=== PATIENT | male | born 1955 | race Caucasian/White ===

== ENCOUNTER 2017-04-13 06:02 | Inpatient (IN) | payer BC ==
[~2017-04-13] VITALS: Ht 175.3 cm; Wt 113.1 kg
[~2017-04-13 06:02] MED LIST: ALPR0.5T3 PO; AMBI10TA PO; APIX5TAB PO; CALC250T PO; ENAL20TA81 PO; FERR325T18 PO; LEVO50TA4 PO; MULT-65 PO; OMEP20TA93 PO; PANT40TA3 PO; SIMV40TA PO; TOPR50TA PO; TRAM50TA PO
[2017-04-13] MEDS ORDERED: ceFAZolin 1,000 MG/NS 100 ML IV SCH ×2 (06:30)
[2017-04-13] MEDS ORDERED: ACETAMINOPHEN 1000 MG/100 ML 100 ML IV SCH (06:30)
[2017-04-13] MEDS ORDERED: POVIDONE IODINE 5% (ANTISEPSIS KIT) 4 APPLICATIONS EACH NARE PRN (06:30)
[2017-04-13] MEDS ORDERED: metroNIDAZOLE 500 MG INJ 100 ML IV SCH (06:30)
[2017-04-13] MEDS ORDERED: METOPROLOL TARTRATE 25 MG TAB PO PRN (06:30)
[2017-04-13] MEDS ORDERED: CHLORHEXIDINE GLUCONATE 2 % 1 PACK (2 CLOTHS) TOPICAL PRN (06:30)
[2017-04-13] MEDS ORDERED: LACTATED RINGER'S 1000 ML IV PRN (06:30)
[2017-04-13] MEDS ORDERED: SODIUM CHLORID 0.9% 500 ML IV PRN (06:30)
[2017-04-13] MEDS ORDERED: ALVIMOPAN 12 MG CAPSULE ONE (06:40)
[2017-04-13] MEDS ORDERED: BUPIVACAINE/EPINEPHRINE 0.25% PF 30 ML VIAL ONE (07:04)
[2017-04-13] MEDS ORDERED: ACETAMINOPHEN 1000 MG/100 ML 0 ML IV ONE (07:08)
[2017-04-13] MEDS ORDERED: HYDROmorphone HCL PF 2 MG/ML VIAL ONE (07:09)
[2017-04-13] MEDS ORDERED: SUGAMMADEX SODIUM 200 MG/2 ML VIAL IV PUSH ONE (07:09)
[2017-04-13 09:12] LABS: BICARBONATE 24.9 MEQ/L (21.0-32.0); CALCIUM 8.7 MG/DL (8.5-10.1); CREATININE 0.98 MG/DL (0.60-1.30)
[2017-04-13 09:34] LABS: AUTOMATED NEUTROPHIL # 3.5 TH/MM3 (1.8-7.7); BASOPHIL % 0.5 % (0.0-2.0); EOSINOPHIL # 0.2 TH/MM3 (0-0.4); EOSINOPHIL % 3.9 % (0.0-4.0); HEMATOCRIT 34.7 % (39.0-51.0); HEMOGLOBIN 11.1 GM/DL (13.0-17.0); LYMPH % 31.5 % (9.0-44.0); LYMPHOCYTE # 1.9 TH/MM3 (1.0-4.8); MEAN CELL VOLUME 80.2 FL (80.0-100.0); MEAN CORPUSCULAR HEMOGLOBIN 25.6 PG (27.0-34.0); MEAN CORPUSCULAR HGB CONC 31.9 % (32.0-36.0); MONO % 6.5 % (0.0-8.0); MONOCYTE # 0.4 TH/MM3 (0-0.9); NEUT % 57.6 % (16.0-70.0); PLATELET COUNT 289 TH/MM3 (150-450); RED BLOOD COUNT 4.33 MIL/MM3 (4.50-5.90); RED CELL DISTRIBUTION WIDTH 27.7 % (11.6-17.2); WHITE BLOOD COUNT 6.1 TH/MM3 (4.0-11.0)
[2017-04-13 10:09] LABS: OVALOCYTES 1+ (NORMAL)
--- NOTE | 2017-04-13 11:27 | HHI.PR ---
cc: Bakari Vann MD; West Cantu MD Immediate Post Op Note Procedure Date: Apr 13, 2017 Pre Op Diagnosis: Suspicious lesion hepatic flexure of colon Post Op Diagnosis: Same, located distal to hepatic flexure of colon Surgeon: West Cantu [employer] P[employer] Machine Operator(s): Thomas Vann MD Procedure: Laparoscopic assisted Right hemicolectomy Partial omentectomy Findings: One enlarged node noted in mesentery at hepatic flexure Complications: None Specimen(s) removed: Right colon to pathology; two specimens with tumor in specimen #2 Estimated blood loss: 250 ml Anesthesia: General Drains: None IVF (1900 ml) Patient to: PACU Patient Condition: Good Date/Time of Procedure: SEE SURGICAL CARE RECORD West Cantu MD Apr 13, 2017 11:27
[2017-04-13] MEDS ORDERED: MIDAZOLAM HCL 2 MG/2 ML VIAL ONE (11:47)
[2017-04-13] MEDS ORDERED: *morphine SULFATE 8 MG/ML PERIprocedure ONLY ONE (11:48)
[2017-04-13] MEDS ORDERED: NEOSTIGMINE 5 MG/5 ML SYRINGE IV PUSH ONE (12:00)
[2017-04-13] MEDS ORDERED: PROPOFOL 200 MG/20 ML AMP IV ONE (12:00)
[2017-04-13] MEDS ORDERED: DEXAMETHASONE SOD PHOS 4 MG/ML VIAL IV ONE (12:00)
[2017-04-13] MEDS ORDERED: KETOROLAC TROMETHAMINE 30 MG/ML (IVP) VIAL IV PUSH ONE (12:00)
[2017-04-13] MEDS ORDERED: SODIUM CHLORIDE 0.9% 20 ML VIAL IV ONE (12:00)
[2017-04-13] MEDS ORDERED: ROCURONIUM INJ 50 MG/5 ML SYRINGE IV PUSH ONE (12:00)
[2017-04-13] MEDS ORDERED: DO NOT ADM ANY ANTICOAGULANT DRUGS PRN (12:00)
[2017-04-13] MEDS ORDERED: ePHEDrine/NS 25 MG/5 ML SYRINGE IV ONE (12:00)
[2017-04-13] MEDS ORDERED: LACTATED RINGER'S 1000 ML INJ 2,000 ML IV ONE (12:00)
[2017-04-13] MEDS ORDERED: GLYCOPYRROLATE 1 MG/5 ML SYRINGE IV PUSH ONE (12:00)
[2017-04-13] MEDS ORDERED: PHENYLEPH/NS 1000 MCG/10 ML SYR IV ONE (12:00)
[2017-04-13] MEDS ORDERED: LIDOCAINE HCL 1% PF 5 ML SYRINGE OTHER ONE (12:00)
[2017-04-13] MEDS ORDERED: ONDANSETRON HCL 4 MG/2 ML VIAL IV ONE (12:00)
[2017-04-13] MEDS ORDERED: ACETAMINOPHEN/HYDROcodone 325 MG/5 MG TAB PO PRN (12:15)
--- NOTE | 2017-04-13 12:15 | MP ---
cc: WEST CANTU M.D., BEATRICE S. M.D. DATE OF SURGERY 04/13/2017 PROCEDURE Laparoscopic lysis of adhesions Right hemicolectomy Partial omentectomy. PREOPERATIVE DIAGNOSIS Suspicious lesion hepatic flexure of colon. POSTOPERATIVE DIAGNOSIS Suspicious lesion hepatic flexure of colon. ANESTHESIA General endotracheal. SURGEON West Cantu MD. [employer] SURGEON Bakari Vann MD. ESTIMATED BLOOD LOSS 250 mL. FLUIDS 1900 mL crystalloid. COMPLICATIONS None. DRAINS None. SPECIMEN Right colon and partial omentum to pathology. PROCEDURE IN DETAIL The patient was taken to the operating room and placed on the operating table in the supine position. After an adequate level of general endotracheal anesthesia was achieved, the abdomen was shaved and prepped and a Caballero catheter placed. The abdomen was draped. A timeout was taken confirming the correct patient, site and procedure to be performed. The skin was infiltrated with local anesthetic and a supraumbilical incision was made. The first trocar entered the abdominal cavity under direct vision uneventfully. A second trocar was placed in the right mid abdomen just past the midline to allow for easier mobilization of the colon. A Harmonic scalpel was then inserted and abdominal adhesions consisting entirely of omentum were taken down off of the anterior abdominal wall in a bloodless fashion. When the lower abdominal adhesions had been taken down, a third infraumbilical trocar was placed. This allowed for manipulation of the ascending colon. This was dissected free from the lateral body wall and retracted medially. The ileum was also dissected free from the sidewall with the Harmonic scalpel used to lyse adhesions. Dissection was then carried up along the ascending colon to the hepatic flexure which was taken down off of the liver with the Harmonic scalpel. The transverse colon was identified and the omentum divided along the colon to free it up further. When the entire hepatic flexure had been taken down, the laparoscopic procedure was terminated after choosing a position for the external resection. The colon was grasped with a grasping forceps which was then locked. The patient had placement of a right mid abdominal transverse incision. When this was accomplished electrocautery was used to divide the anterior and posterior fascia as well as a portion of the rectus muscle. The lateral rectus was left intact as was the epigastric vessel. When this was accomplished the peritoneal cavity was entered uneventfully. A wound protector was then placed. The colon and distal ileum was brought out into the wound. There were two lesions, one potentially felt in the distal ascending colon near the hepatic flexure, and a very hard lesion just distal to the hepatic flexure in the proximal transverse colon. The ileum was taken first with a stapling device and then the colon at the proximal transverse location. This was removed with clamping and ligation with 2-0 silk sutures. The specimen was palpated and passed off the table. Careful palpation revealed a definitive tumor distal to this and the colon was taken to the mid transverse colon. A node along the hepatic flexure was also noted and this was taken as well. Care was taken to include a substantial portion of mesentery with the specimen as well. When this had been accomplished, this portion of the colon was removed with successive clamping and ligation with 2-0 silk suture. The specimen was passed off the table with the lymph node as well as omentum that was involved with this portion of the colon. There did not appear to be any gross metastatic disease in the abdomen and the liver appeared to be without any lesions by laparoscopy. There did not appear to be any peritoneal implants. At this point the ileum and transverse colon were brought [id number]. A [id number] anastomosis was used with an ileocolostomy created and utilizing the 75 mm stapling device. When this had been accomplished the staple lines were examined and seen to be hemostatic. The ileocolostomy was closed with a TX60 type stapler. The toe of the staple line was reinforced with a silk suture. The mesentery was closed with [id number] 3-0 silk sutures. When this had been completed, the anastomosis was allowed to fall back into the abdominal cavity and the remaining omentum was brought back over the anastomosis. With hemostasis assured the wound was closed in two layers with running #1 PDS suture. The skin was closed with alexandra as were the other three trocar sites. Primapore dressing was applied over the transverse incision and Band-Aids applied over the trocar sites. The patient was taken back to the recovery room extubated and in stable condition. Sponge, needle and instrument counts were reported to be correct. MD CHELY Fierro/BEN /11:21 AM /11:40 AM VERONIKA
[2017-04-13] MEDS: MORPHINE SULFATE 30 MG/30 ML PCA IV SCH (12:21)
[2017-04-13] MEDS: D5-NS + KCL 20 MEQ INJ 1,000 ML IV SCH ×2 (12:21→20:58)
[2017-04-13] MEDS ORDERED: ONDANSETRON HCL 4 MG/2 ML VIAL IV PUSH PRN (12:30)
[2017-04-13] MEDS ORDERED: NALOXONE HCL 0.4 MG/ML AMP IV PUSH PRN (12:30)
[2017-04-13] MEDS ORDERED: Post-op Orders (for Pharmacy) XX ONE (13:00)
[2017-04-13] MEDS: PCA - TOTAL MG MORPHINE DELIVERED PER SHIFT SCH ×2 (14:00→22:00)
[2017-04-13 16:00] VITALS: BP 162/72; PULSE 62; RESP 18; TEMP 97.2; O2SAT 95
[2017-04-13] MEDS: ceFAZolin 2 GM PREMIX 50 ML IV SCH (16:02)
[2017-04-13] MEDS: ACETAMINOPHEN/HYDROcodone 325 MG/5 MG TAB PO PRN ×2 (16:02→20:57)
--- NOTE | 2017-04-13 17:09 | EKG ---
Date Performed: 04/13/2017 Time Performed: 06:48:10 PTAGE: 61 years EKG: SINUS BRADYCARDIA When compared to previous tracing, previously noted atrial Fibrillation i s no longer present. BORDERLINE ECG PREVIOUS TRACING : 08/23/2012 09.25 DOCTOR: Cookie Zeng Interpretating Date/Time 04/13/2017 17:07:51
[2017-04-13] MEDS: metroNIDAZOLE 500 MG INJ 100 ML IV SCH (17:32)
[2017-04-13] MEDS ORDERED: ARTIFICIAL TEARS OPTH SOLN 15 ML BTL EACH EYE PRN (19:45)
[2017-04-13 20:00] VITALS: BP 144/69; PULSE 79; RESP 18; TEMP 97.8; O2SAT 95
[2017-04-13] MEDS: ZOLPIDEM TARTRATE 10 MG TAB PO PRN (22:45)
[2017-04-13] MEDS: ALPRAZolam 0.5 MG TAB PO PRN (22:45)
[2017-04-14] VITALS (9 sets, daily range): BP systolic 115–139; BP diastolic 56–65; PULSE 62–89; RESP 17–20; TEMP 95.9–99; O2SAT 92–96
[2017-04-14] MEDS: ceFAZolin 2 GM PREMIX 50 ML IV SCH ×2 (00:52→09:32)
[2017-04-14] MEDS: ACETAMINOPHEN/HYDROcodone 325 MG/5 MG TAB PO PRN ×5 (00:53→21:21)
[2017-04-14] MEDS: metroNIDAZOLE 500 MG INJ 100 ML IV SCH ×2 (00:53→08:36)
[2017-04-14] MEDS: MORPHINE SULFATE 30 MG/30 ML PCA IV SCH ×2 (01:06→13:46)
[2017-04-14] MEDS: D5-NS + KCL 20 MEQ INJ 1,000 ML IV SCH (04:54)
[2017-04-14] MEDS: PCA - TOTAL MG MORPHINE DELIVERED PER SHIFT SCH ×3 (05:45→21:25)
[2017-04-14 07:38] LABS: BICARBONATE 24.6 MEQ/L (21.0-32.0); CALCIUM 8.2 MG/DL (8.5-10.1); CREATININE 1.04 MG/DL (0.60-1.30)
[2017-04-14] MEDS: MULTIVITAMIN TAB PO SCH (09:43)
[2017-04-14] MEDS: PANTOPRAZOLE SOD 40 MG DELAYED RELEASE TAB PO SCH (09:43)
[2017-04-14] MEDS: LEVOTHYROXINE SODIUM 50 MCG TAB PO SCH (09:43)
[2017-04-14] MEDS: ENALAPRIL MALEATE 10 MG TAB PO SCH (09:44)
[2017-04-14] MEDS ORDERED: CALCIUM CITRATE 500 MG PO SCH (09:45)
[2017-04-14] MEDS: METOPROLOL SUCCINATE 50 MG EXTENDED RELEASE TAB PO SCH ×2 (09:48→21:20)
[2017-04-14] MEDS: SODIUM CHLOR 0.9% 1000 ML INJ 1,000 ML IV SCH (11:39)
--- NOTE | 2017-04-14 13:00 | HHI.PR ---
Subjective Subjective Notes Resting in bed Had uneventful night last night Daughter at bedside Objective Vitals/I&O Vital Signs Date Time Temp Pulse Resp B/P (MAP) Pulse Ox O2 Delivery O2 Flow Rate FiO2 04/14/17 12:00 98.0 62 17 119/57 (77) 95 04/13/17 15:00 Room Air 04/13/17 11:45 2 Labs Laboratory Tests Test 04/14/17 05:21 Hemoglobin 10.6 Blood Urea Nitrogen 11 Creatinine 1.04 Random Glucose 219 Calcium Level 8.2 Sodium Level 136 Potassium Level 3.7 Chloride Level 103 Carbon Dioxide Level 24.6 Anion Gap 8 Estimat Glomerular Filtration Rate 73 Cardiovascular: Regular Lungs: Clear Abdomen: Other (incision with dressing--c/d/i; non distended; mild tenderness to palpation ) Extremities: No edema Narrative Exam Caballero in place with clear yellow urine A/P Assessment and Plan 61 year old male POD1 RIGHT hemicolectomy -Advance to full liquids -Adjust fluids -DC Caballero -OOB and mobilize -Await pathology -Heparin subq -Restart home medications; holding Eliquis for now -IS Attending Note - Dr. Cantu Moderate pain; dressing dry and intact. Tolerating diet at present Will place on telemetry due to history of A-fib Will obtain consult with Med Onc Wednesday AM when path available Advance diet to regular when patient has BM The exam, history, and the medical decision-making described in the above note were completed with the assistance of the mid-level provider. I reviewed and agree with the findings presented. I attest that I had a [id number] encounter with the patient on the same day, and personally performed and documented my assessment and findings in the medical record. Brunilda Garcia Apr 14, 2017 13:00 West Cantu MD Apr 14, 2017 16:53
[2017-04-14] MEDS: HEPARIN SODIUM - SQ 10,000 UNITS/ML VIAL SQ SCH (17:40)
[2017-04-14] MEDS: PRAVASTATIN SOD 80 MG TAB PO SCH (21:20)
[2017-04-14] MEDS: ALVIMOPAN 12 MG CAPSULE PO SCH (21:20)
[2017-04-14] MEDS: ZOLPIDEM TARTRATE 10 MG TAB PO PRN (22:31)
[2017-04-14] MEDS: ALPRAZolam 0.5 MG TAB PO PRN (22:31)
[2017-04-15 00:14] VITALS: BP 135/58; PULSE 69; RESP 20; TEMP 99; O2SAT 97
[2017-04-15] MEDS: ACETAMINOPHEN/HYDROcodone 325 MG/5 MG TAB PO PRN ×6 (02:09→22:53)
[2017-04-15] MEDS: HEPARIN SODIUM - SQ 10,000 UNITS/ML VIAL SQ SCH ×3 (02:10→19:00)
[2017-04-15] MEDS: MORPHINE SULFATE 30 MG/30 ML PCA IV SCH ×2 (02:14→20:57)
[2017-04-15 04:35] VITALS: BP 145/71; PULSE 75; RESP 20; TEMP 100.5; O2SAT 97
[2017-04-15] MEDS: LEVOTHYROXINE SODIUM 50 MCG TAB PO SCH (05:59)
[2017-04-15] MEDS: PCA - TOTAL MG MORPHINE DELIVERED PER SHIFT SCH ×3 (06:00→21:03)
[2017-04-15 08:00] VITALS: BP 137/79; PULSE 75; RESP 18; TEMP 97.4; O2SAT 94
[2017-04-15 08:21] LABS: BICARBONATE 28.4 MEQ/L (21.0-32.0); CALCIUM 8.5 MG/DL (8.5-10.1); CREATININE 0.75 MG/DL (0.60-1.30)
[2017-04-15] MEDS: METOPROLOL SUCCINATE 50 MG EXTENDED RELEASE TAB PO SCH ×2 (09:47→20:59)
[2017-04-15] MEDS: PANTOPRAZOLE SOD 40 MG DELAYED RELEASE TAB PO SCH (09:47)
[2017-04-15] MEDS: ENALAPRIL MALEATE 10 MG TAB PO SCH (09:47)
[2017-04-15] MEDS: ALVIMOPAN 12 MG CAPSULE PO SCH ×2 (09:47→20:59)
[2017-04-15] MEDS: MULTIVITAMIN TAB PO SCH (09:47)
[2017-04-15] MEDS: SODIUM CHLOR 0.9% 1000 ML INJ 1,000 ML IV SCH (10:19)
[2017-04-15 12:00] VITALS: BP 141/69; PULSE 74; RESP 18; TEMP 98.9; O2SAT 93
--- NOTE | 2017-04-15 13:10 | HHI.PR ---
Subjective Subjective Notes Resting in bed No issues overnight at bedside Objective Vitals/I&O Vital Signs Date Time Temp Pulse Resp B/P (MAP) Pulse Ox O2 Delivery O2 Flow Rate FiO2 04/15/17 12:00 98.9 74 18 141/69 (93) 93 04/14/17 18:01 21 04/13/17 15:00 Room Air 04/13/17 11:45 2 Labs Laboratory Tests Test 04/15/17 05:44 Blood Urea Nitrogen 8 Creatinine 0.75 Random Glucose 144 Calcium Level 8.5 Sodium Level 139 Potassium Level 3.9 Chloride Level 104 Carbon Dioxide Level 28.4 Anion Gap 7 Estimat Glomerular Filtration Rate 106 Cardiovascular: Regular Lungs: Clear Abdomen: Non-distended, Other (RIGHT transverse incison with alexandra; dressing removed ---minimal drainage---new dressing applied. 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 Cantu Abdomen soft; dressing dry Passing flatus Await return of bowel function Stop GUNSTOCK REPAIRER tomorrow Home in next couple of days. The exam, history, and the medical decision-making described in the above note were completed with the assistance of the mid-level provider. I reviewed and agree with the findings presented. I attest that I had a [id number] encounter with the patient on the same day, and personally performed and documented my assessment and findings in the medical record. Brunilda Garcia Apr 15, 2017 13:10 West Cantu MD Apr 16, 2017 17:54
[2017-04-15 16:00] VITALS: BP 138/64; PULSE 70; RESP 18; TEMP 99.1; O2SAT 95
[2017-04-15] MEDS: PRAVASTATIN SOD 80 MG TAB PO SCH (20:59)
[2017-04-15] MEDS: ZOLPIDEM TARTRATE 10 MG TAB PO PRN (21:05)
[2017-04-15] MEDS: ALPRAZolam 0.5 MG TAB PO PRN (21:05)
[2017-04-15 22:08] VITALS: O2SAT 95
[2017-04-16] VITALS (7 sets, daily range): BP systolic 120–165; BP diastolic 58–73; PULSE 69–77; RESP 16–20; TEMP 98.3–100.3; O2SAT 93–99
[2017-04-16] MEDS: HEPARIN SODIUM - SQ 10,000 UNITS/ML VIAL SQ SCH ×2 (04:26→13:26)
[2017-04-16] MEDS: LEVOTHYROXINE SODIUM 50 MCG TAB PO SCH (04:26)
[2017-04-16] MEDS: ACETAMINOPHEN/HYDROcodone 325 MG/5 MG TAB PO PRN ×4 (04:27→18:03)
[2017-04-16] MEDS: PCA - TOTAL MG MORPHINE DELIVERED PER SHIFT SCH (04:30)
[2017-04-16] MEDS: METOPROLOL SUCCINATE 50 MG EXTENDED RELEASE TAB PO SCH (09:18)
[2017-04-16] MEDS: ENALAPRIL MALEATE 10 MG TAB PO SCH (09:18)
[2017-04-16] MEDS: PANTOPRAZOLE SOD 40 MG DELAYED RELEASE TAB PO SCH (09:18)
[2017-04-16] MEDS: ALVIMOPAN 12 MG CAPSULE PO SCH (09:18)
[2017-04-16] MEDS: MULTIVITAMIN TAB PO SCH (09:18)
[2017-04-16] MEDS: SODIUM CHLOR 0.9% 1000 ML INJ 1,000 ML IV SCH (09:19)
[2017-04-16] MEDS ORDERED: HYDR-3288 PO (16:06)
--- NOTE | 2017-04-16 17:08 | HHI.DS ---
Discharge Summary Admission Date Apr 13, 2017 at 06:02 Discharge Date: Apr 16, 2017 Admitting Diagnosis Brief History 61 year old male s/p RIGHT hemicolectomy CBC/BMP: 04/14/17 0521 04/15/17 0544 Significant Findings Laboratory Tests Test 04/14/17 05:21 04/15/17 05:44 Hemoglobin 10.6 GM/DL (13.0-17.0) Random Glucose 219 MG/DL (74-106) 144 MG/DL (74-106) Calcium Level 8.2 MG/DL (8.5-10.1) Estimat Glomerular Filtration Rate 73 ML/MIN (>89) PE at Discharge Alert and awake Cardio: RRR Resp: CTAB Abd: incision with alexandra; c/d/i; non tender; soft Hospital Course This is a 61 year old male s/p RIGHT hemicolectomy. The patient's diet was advanced as tolerated. His pain was controlled using oral pain medications. He will follow up with Dr. Beltran with Oncology as an outpatient. He will follow up with Dr. Cantu in the office next week. Pt Condition on Discharge: Good Discharge Disposition: Discharge Home Discharge Instructions DIET: Follow Instructions for: As Tolerated, No Restrictions Activities you can perform: See Additionl Instruction Other Activity Instructions: Okay to shower; pat incision dry No bath tubs, hot tubs, or beach until you see Dr. Cantu in office Brunilda Garcia Apr 16, 2017 17:08
== END 2017-04-16 18:27 | disposition home or self-care (01) | DRG 331 ==
LOC: HSDI 06:02 → N07A 15:30
PROVIDERS: ADMIT Surgery Trauma Surgery; ATTEND Surgery Trauma Surgery
PROC: 0DTK0ZZ Resection of Ascending Colon, Open Approach (ICD-10-PCS; 2017-04-13)
PROC: 0DBB0ZZ Excision of Ileum, Open Approach (ICD-10-PCS; 2017-04-13)
PROC: 0DBL0ZZ Excision of Transverse Colon, Open Approach (ICD-10-PCS; 2017-04-13)
PROC: 0DBU0ZZ Excision of Omentum, Open Approach (ICD-10-PCS; 2017-04-13)
PROC: 0DNW4ZZ Release Peritoneum, Percutaneous Endoscopic Approach (ICD-10-PCS; 2017-04-13)
PROC: 0DTH0ZZ Resection of Cecum, Open Approach (ICD-10-PCS; principal; 2017-04-13 07:48)
DX: C18.3 Malignant neoplasm of hepatic flexure (principal); G62.9 Polyneuropathy, unspecified; I10 Essential (primary) hypertension; K63.9 Disease of intestine, unspecified; E78.5 Hyperlipidemia, unspecified; M54.9 Dorsalgia, unspecified; E11.9 Type 2 diabetes mellitus without complications; E03.9 Hypothyroidism, unspecified; K21.9 Gastro-esophageal reflux disease without esophagitis; Z87.891 Personal history of nicotine dependence
CPT/HCPCS: 80048; 81210; 81275; 81276; 85018; 85025; 88305; 88307; 88309; 88381; 93005; 94150; J0131; J0690; J1100; J1170; J1644; J1885; J2250; J2270; J2370; J2405; J2710; J3010; J3480; J7030; J7120